=== PATIENT | female | born 1995 | race Caucasian/White ===

== ENCOUNTER 2018-08-09 22:00 | Inpatient (IN) ==
--- NOTE | 2018-08-09 22:08 | Emergency Department Note ---
Disposition General Adult HPI - General Chief complaint: ED General Medical Stated complaint: "Tachycardia, fever" sent from Time Seen by Provider: 08/09/18 22:07 Source: patient Nursing Notes Reviewed: Yes Vital Signs Reviewed: Yes - History of Present Illness Pain Scale: 5 - Related Data Allergies Allergy/AdvReac Type Severity Reaction Status Date / Time Sulfa (Sulfonamide Allergy Rash Verified 10/24/15 20:41 Antibiotics) Past Medical History - Past Medical History Medical history: Reports: no medical history Psychiatric history: Reports: no psych history MANAGER PLAY history: Reports: no MANAGER PLAY history - Social History Smoking Status: 2nd Hand Smoke Exposure Smokeless Tobacco Status: No Alcohol use: Reports: none Drug use: Reports: none Physical Exam - General General appearance: alert Course Vital Signs Temperature 99.0 F 08/09/18 22:02 Pulse Rate 124 08/09/18 22:02 Respiratory Rate 20 08/09/18 22:02 Blood Pressure 100/62 08/09/18 22:02 O2 Sat by Pulse Oximetry 100 08/09/18 22:02 Temperature 99.0 F 08/09/18 22:02 Pulse Rate 124 08/09/18 22:02 Respiratory Rate 20 08/09/18 22:02 Blood Pressure 100/62 08/09/18 22:02 O2 Sat by Pulse Oximetry 100 08/09/18 22:02 Oxygen Delivery Oxygen Delivery Room Air
[2018-08-09] MEDS ORDERED: 0.9 % Sodium Chloride 1,000 ML IVC ONE ×2 (22:36→23:58)
--- NOTE | 2018-08-09 23:08 | Emergency Department Note ---
Disposition Clinical Impression: Xavier Peterson virus infection, Mononucleosis, Urinary tract infection, Petechiae , Transaminitis, Acute kidney injury, Leukocytosis Disposition: Admitted As Inpatient Referrals: Donnell Ocampo MD [Primary Care Provider] - Forms: ED Satisfaction Letter, Work/School Release Fever HPI - General Chief Complaint: ED General Medical Stated Complaint: "Tachycardia, fever" sent from Time Seen by Provider: 08/09/18 22:07 Source: patient - History of Present Illness HPI Narrative: The 23 years old female is here for chest pain, fever, rashes, sore throat for last 1 day. She has had flue shot on last Sunday. She went to urgent care for those problem today and took Xray chest and referred to ED to evaluate for tachycardia and fever. She stated that she has fever about 104F , erythematous maculo-papular rashes most prominently in both lower limbs. She has had pain in throat and feels discomfort during swallowing. She has minimal swelling in both lower limbs and admits mild chest discomfort in chest basically during deep inspiration. She admits some nausea but no vomiting. Pt Subjective Complaint: fever, malaise Onset (ago): day(s) Associated symptoms: Reports: chills, myalgias, headache, nasal congestion, sore throat, nausea, rash. Denies: rigors, stiff neck, dyspnea, abdominal pain , vomiting, altered mental status, night sweats Improves with: nothing Worsens with: nothing - Related Data Allergies Allergy/AdvReac Type Severity Reaction Status Date / Time Sulfa (Sulfonamide Allergy Rash Verified 10/24/15 20:41 Antibiotics) All systems ED: reviewed and negative except as stated. Review of Systems: As Per HPI Constitutional: Reports: as per HPI, fever, chills, weakness ENT ED: Reports: throat pain. Denies: ear pain Cardiovascular: Reports: chest pain. Denies: palpitations, dyspnea on exertion , edema, syncope, paroxysmal nocturnal dyspnea Respiratory: Reports: cough. Denies: dyspnea, wheezes, sputum production Gastrointestinal: Reports: abdominal pain, nausea. Denies: vomiting, diarrhea, constipation, hematemesis Genitourinary: Denies: urgency, dysuria, frequency Musculoskeletal: Reports: as per HPI. Denies: back pain, neck pain Neurological: Denies: headache, weakness, numbness Psychiatric: Denies: anxiety, depression Endocrine: Reports: fatigue. 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 - Social History Smoking Status: 2nd Hand Smoke Exposure Alcohol use: Reports: none Drug use: Reports: none Physical Exam - General Limitations: no limitations General appearance: alert, in no apparent distress - Head Head exam: atraumatic, normocephalic - Eye Eye exam: Present: normal appearance, PERRL, EOMI - ENT ENT exam: mucous membranes moist, other (Congested posterior pharyngeal wall and fauces , but no tonsillar enlargement) - Neck Neck exam: Present: normal inspection, full ROM, other ( anterior , Supraclavicular, scalaneus and posoterior cervical LN palpable, but not significantly enlarged ( less than 1 cm)) - Chest Chest inspection: Present: normal inspection, symmetric chest wall rise - Respiratory Respiratory exam: Present: normal lung sounds bilaterally. Absent: respiratory distress, wheezes, accessory muscle use - Cardiovascular Cardiovascular exam: Present: regular rate, normal rhythm, tachycardia, normal heart sounds, +S1, +S2. Absent: bradycardia - Abdominal Exam Abdominal exam: Present: soft, Non-Tender, normal bowel sounds. Absent: distention, guarding - Extremities Exam Extremities exam: Present: tenderness, pedal edema, other (Mild non pitting edema both leg, non itchy Maculopapular rashes both legs below knee). Absent: joint swelling, calf tenderness - Expanded Lower Extremity Exam Neurovascular/Tendon exam: Present: normal capillary refill - Back Exam Back exam: Present: normal inspection. Absent: CVA tenderness (R), CVA tenderness (L), muscle spasm - Neurological Exam Neurological exam: Present: alert, oriented X3, reflexes normal - Psychiatric Psychiatric exam: Present: normal affect - Skin Skin exam: Present: warm, intact Course Course Narrative: The patient has fever, chest pain , rash x 1 day . She had gotten flu shot on last sunday . Xray chest done in Urgent care : normal. We planned to work up with CBC, Rapid test for streptococcus,Monospot for IM, CMP,urinalysis We planned to admit her urine is positive for UTI, acute renal impairment, elevated liver enzyme . Vital Signs Temperature 99.0 F 08/09/18 22:02 Pulse Rate 124 08/09/18 22:02 Respiratory Rate 20 08/09/18 22:02 Blood Pressure 100/62 08/09/18 22:02 O2 Sat by Pulse Oximetry 100 08/09/18 22:02 Temperature 99.0 F 08/09/18 22:02 Pulse Rate 124 08/09/18 22:02 Respiratory Rate 20 08/09/18 22:02 Blood Pressure 100/62 08/09/18 22:02 O2 Sat by Pulse Oximetry 100 08/09/18 22:02 Oxygen Delivery Oxygen Delivery Room Air Fever - Lab Data Result diagrams: 08/09/18 22:58 08/09/18 22:58 Lab Results 08/09/18 08/09/18 08/09/18 Range/Units 22:58 22:58 22:58 WBC 17.4 H (4.3-11.1) K/mcL RBC 4.44 (3.82-4.97) M/mcL Hgb 13.2 (11.5-15.4) g/dL Hct 38.7 (35.3-44.9) % MCV 87.2 (83.0-100.0) fL MCH 29.7 (28.0-33.3) pg MCHC 34.1 (31.6-35.5) g/dL RDW 12.4 (11.5-14.5) % Plt Count 199 (140-400) K/mcL MPV 9.6 (9.4-12.4) fL Immature Gran % 3.0 (0-4) % Seg Neutrophils % 90.8 % Lymphocytes % 1.7 % Monocytes % 1.8 % Eosinophils % 2.5 % Basophils % 0.2 % Neutrophils # 15.8 H (1.6-8.9) K/mcL Lymphocytes # 0.3 L (0.6-4.6) K/mcL Monocytes # 0.3 (0.0-1.3) K/mcL Eosinophils # 0.4 (0.0-0.6) K/mcL Basophils # 0.0 (0.0-0.2) K/mcL Reactive Lymphocytes Present A (Not Present) Toxic Granulation Present A (Not Present) Platelet Estimate Normal (Normal) PT 17.8 H (9.4-12.1) Seconds INR 1.6 APTT 34.2 (26.0-36.0) Seconds Sodium 136 (136-145) mEq/L Potassium 3.4 L (3.5-5.1) mEq/L Chloride 102 (98-107) mEq/L Carbon Dioxide 25 (23-29) mEq/L BUN 33 H (6-20) mg/dL Creatinine 1.68 H (0.60-1.20) mg/dL Est GFR ( Amer) 47 L (> 60) Est GFR (Non-Af Amer) 38 L (> 60) BUN/Creatinine Ratio 20 (6-26) Glucose 124 H (70-105) mg/dL Calculated Osmolality 291 (280-300) Calcium 8.6 (8.6-10.3) mg/dL Total Bilirubin 3.2 H (0.3-1.0) mg/dL Direct Bilirubin 2.3 H (0.0-0.2) mg/dL Indirect Bilirubin 0.9 (0.0-1.2) mg/dL AST 85 H (13-39) Units/L ALT 146 H (7-52) Units/L Alkaline Phosphatase 81 (34-104) Units/L Serum Total Protein 6.1 L (6.4-8.9) g/dL Albumin 3.7 (3.5-5.7) g/dL Globulin 2.4 (2.4-3.5) g/dL Albumin/Globulin Ratio 1.5 (1.1-2.2) Serum , Qual (Negative) Ur Specimen Adequacy Urine Color (Yellow) Urine Clarity (Clear) Urine pH (5.0-8.0) pH Units Ur Specific [place] (1.010-1.025) Urine Protein (Neg-Trace) mg/dL Urine Glucose (UA) (Normal) mg/dL Urine Ketones (Negative) mg/dL Urine Blood (Negative) Urine Nitrite (Negative) Urine Bilirubin (Negative) Urine Urobilinogen (Normal) mg/dL Ur Leukocyte Esterase (Negative) Urine Microscopic RBC (0-3) per hpf Urine Microscopic WBC (0-3) per hpf Ur Squamous Epith Cells (None-Few) per lpf Urine Bacteria (None-Few) per hpf Hyaline Casts Urine Yeast Ur Culture Indicated? (NO) Infectious [place] Assay (Negative) 08/09/18 08/09/18 08/09/18 Range/Units 22:58 22:58 23:03 WBC (4.3-11.1) K/mcL RBC (3.82-4.97) M/mcL Hgb (11.5-15.4) g/dL Hct (35.3-44.9) % MCV (83.0-100.0) fL MCH (28.0-33.3) pg MCHC (31.6-35.5) g/dL RDW (11.5-14.5) % Plt Count (140-400) K/mcL MPV (9.4-12.4) fL Immature Gran % (0-4) % Seg Neutrophils % % Lymphocytes % % Monocytes % % Eosinophils % % Basophils % % Neutrophils # (1.6-8.9) K/mcL Lymphocytes # (0.6-4.6) K/mcL Monocytes # (0.0-1.3) K/mcL Eosinophils # (0.0-0.6) K/mcL Basophils # (0.0-0.2) K/mcL Reactive Lymphocytes (Not Present) Toxic Granulation (Not Present) Platelet Estimate (Normal) PT (9.4-12.1) Seconds INR APTT (26.0-36.0) Seconds Sodium (136-145) mEq/L Potassium (3.5-5.1) mEq/L Chloride (98-107) mEq/L Carbon Dioxide (23-29) mEq/L BUN (6-20) mg/dL Creatinine (0.60-1.20) mg/dL Est GFR ( Amer) (> 60) Est GFR (Non-Af Amer) (> 60) BUN/Creatinine Ratio (6-26) Glucose (70-105) mg/dL Calculated Osmolality (280-300) Calcium (8.6-10.3) mg/dL Total Bilirubin (0.3-1.0) mg/dL Direct Bilirubin (0.0-0.2) mg/dL Indirect Bilirubin (0.0-1.2) mg/dL AST (13-39) Units/L ALT (7-52) Units/L Alkaline Phosphatase (34-104) Units/L Serum Total Protein (6.4-8.9) g/dL Albumin (3.5-5.7) g/dL Globulin (2.4-3.5) g/dL Albumin/Globulin Ratio (1.1-2.2) Serum , Qual Negative (Negative) Ur Specimen Adequacy See below A Urine Color [place] A (Yellow) Urine Clarity Turbid A (Clear) Urine pH 5.5 (5.0-8.0) pH Units Ur Specific [place] 1.029 H (1.010-1.025) Urine Protein 30 H (Neg-Trace) mg/dL Urine Glucose (UA) Normal (Normal) mg/dL Urine Ketones Trace H (Negative) mg/dL Urine Blood Large H (Negative) Urine Nitrite Positive A (Negative) Urine Bilirubin Moderate H (Negative) Urine Urobilinogen 2.0 H (Normal) mg/dL Ur Leukocyte Esterase Large H (Negative) Urine Microscopic RBC 5-15 H (0-3) per hpf Urine Microscopic WBC TNTC H (0-3) per hpf Ur Squamous Epith Cells Moderate H (None-Few) per lpf Urine Bacteria Many H (None-Few) per hpf Hyaline Casts Test Not Performed Urine Yeast Test Not Performed Ur Culture Indicated? YES A (NO) Infectious [place] Assay Positive A (Negative)
[2018-08-09 23:16] LABS: Bilirubin,Urine Moderate (Negative); Blood,Urine Large (Negative); Clarity,Urine Turbid (Clear); Color,Urine Orange (Yellow); Glucose,Urine (UA) Normal (Normal); Ketones,Urine Trace mg/dL (Negative); Leukocyte Esterase,Urine Large (Negative); Nitrite,Urine Positive (Negative); PH,Urine 5.5 pH Units (5.0-8.0); Protein,Urine 30 mg/dL (Neg-Trace); Specific Gravity,Urine 1.029 (1.010-1.025)
[2018-08-09 23:22] LABS: WBC,Urine TNTC per hpf (0-3)
[2018-08-09] MEDS ORDERED: cefTRIAXone 1,000 MG in Water for inj. (sterile) 20 ML 10 ML IVP ONE (23:23)
[2018-08-09 23:24] LABS: Basophils % 0.2 %; Eosinophils # 0.4 K/mcL (0.0-0.6); Eosinophils % 2.5 %; Hematocrit 38.7 % (35.3-44.9); Hemoglobin 13.2 g/dL (11.5-15.4); Lymphocytes # 0.3 K/mcL (0.6-4.6); Lymphocytes % 1.7 %; Mean Corpuscular HGB Conc 34.1 g/dL (31.6-35.5); Mean Corpuscular Hemoglobin 29.7 pg (28.0-33.3); Mean Corpuscular Volume 87.2 fL (83.0-100.0); Mean Platelet Volume 9.6 fL (9.4-12.4); Monocytes # 0.3 K/mcL (0.0-1.3); Monocytes % 1.8 %; Neutrophils # 15.8 K/mcL (1.6-8.9); Platelet Count 199 K/mcL (140-400); Red Blood Count 4.44 M/mcL (3.82-4.97); Red Cell Distribution Width 12.4 % (11.5-14.5); Segmented Neutrophils % 90.8 %
[2018-08-09 23:28] LABS: Squamous Epithelial Cell,Urine Moderate per lpf (None-Few)
[2018-08-09 23:29] LABS: Bacteria,Urine Many per hpf (None-Few)
[2018-08-09 23:30] LABS: INR 1.6; Prothrombin Time 17.8 Seconds (9.4-12.1)
[2018-08-09 23:32] LABS: Activated Partial Thrombo Time 34.2 Seconds (26.0-36.0)
[2018-08-09 23:38] LABS: Platelet Estimate Normal (Normal); Reactive Lymphocytes Present (Not Present)
[2018-08-09 23:39] LABS: Toxic Granulation Present (Not Present)
[2018-08-09 23:48] LABS: Albumin 3.7 g/dL (3.5-5.7); Albumin/Globulin Ratio 1.5 (1.1-2.2); Bilirubin,Direct 2.3 mg/dL (0.0-0.2); Bilirubin,Indirect 0.9 mg/dL (0.0-1.2); Bilirubin,Total 3.2 mg/dL (0.3-1.0); Calcium 8.6 mg/dL (8.6-10.3); Globulin 2.4 g/dL (2.4-3.5); Potassium 3.4 mEq/L (3.5-5.1); Total Protein 6.1 g/dL (6.4-8.9)
[2018-08-10] MEDS ORDERED: 0.9 % Sodium Chloride 1,000 ML IVC ONE (00:08)
--- NOTE | 2018-08-10 00:17 | Emergency Department Note ---
Disposition Clinical Impression: Xavier Peterson virus infection, Mononucleosis, Urinary tract infection, Petechiae , Transaminitis, Acute kidney injury, Leukocytosis Disposition: Admitted As Inpatient Condition: Good Referrals: Donnell Ocampo MD [Primary Care Provider] - Forms: ED Satisfaction Letter, Work/School Release General Adult HPI - General Chief complaint: ED General Medical Stated complaint: "Tachycardia, fever" sent from [facility] Time Seen by Provider: 08/09/18 22:07 Source: patient Limitations: no limitations - History of Present Illness Pain Scale: 5 - Related Data Allergies Allergy/AdvReac Type Severity Reaction Status Date / Time Sulfa (Sulfonamide Allergy Rash Verified 10/24/15 20:41 Antibiotics) Constitutional: Reports: as per HPI, fever, chills, weakness ENT ED: Reports: throat pain. Denies: ear pain Cardiovascular: Reports: chest pain. Denies: palpitations, dyspnea on exertion , edema, syncope, paroxysmal nocturnal dyspnea Respiratory: Reports: cough. Denies: dyspnea, wheezes, sputum production Gastrointestinal: Reports: abdominal pain, nausea. Denies: vomiting, diarrhea, constipation, hematemesis Genitourinary: Denies: urgency, dysuria, frequency Musculoskeletal: Reports: as per HPI. Denies: back pain, neck pain Neurological: Denies: headache, weakness, numbness Psychiatric: Denies: anxiety, depression Endocrine: Reports: fatigue. 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 ARCHITECT history - Social History Smoking Status: 2nd Hand Smoke Exposure Smokeless Tobacco Status: No Alcohol use: Reports: none Drug use: Reports: none Physical Exam - General Limitations: no limitations General appearance: alert, in no apparent distress Course Vital Signs Temperature 99.0 F 08/09/18 22:02 Pulse Rate 124 08/09/18 22:02 Respiratory Rate 20 08/09/18 22:02 Blood Pressure 100/62 08/09/18 22:02 O2 Sat by Pulse Oximetry 100 08/09/18 22:02 Temperature 99.0 F 08/09/18 22:02 Pulse Rate 124 08/09/18 22:02 Respiratory Rate 20 08/09/18 22:02 Blood Pressure 100/62 08/09/18 22:02 O2 Sat by Pulse Oximetry 100 08/09/18 22:02 Oxygen Delivery Oxygen Delivery Room Air Medical Decision Making - MDM Narrative Medical decision making narrative: Patient has evidence of mononucleosis on her Monospot. However, she does have evidence of urinary tract infection as well. This could be also affecting her kidneys versus the mono infection. The lower extremity petechiae I feel could be secondary to the overall infection with mono. Her strep was negative. She had a chest x-ray done as an outpatient at urgent care that was negative. The family reported they did a flu swab that was also negative. At this time I feel the patient has transaminitis which could also be secondary to mono as well as the above findings but we need to be admitted for further observation and care as well as IV fluids and IV antibiotics for the urine infection. - Medical Records Medical records reviewed: Yes I reviewed the patient's medical records. - Lab Data Lab results reviewed: Yes I reviewed the patient's lab results. Result diagrams: 08/09/18 22:58 08/09/18 22:58 Lab Results 08/09/18 08/09/18 08/09/18 Range/Units 22:58 22:58 22:58 WBC 17.4 H (4.3-11.1) K/mcL RBC 4.44 (3.82-4.97) M/mcL Hgb 13.2 (11.5-15.4) g/dL Hct 38.7 (35.3-44.9) % MCV 87.2 (83.0-100.0) fL MCH 29.7 (28.0-33.3) pg MCHC 34.1 (31.6-35.5) g/dL RDW 12.4 (11.5-14.5) % Plt Count 199 (140-400) K/mcL MPV 9.6 (9.4-12.4) fL Immature Gran % 3.0 (0-4) % Seg Neutrophils % 90.8 % Lymphocytes % 1.7 % Monocytes % 1.8 % Eosinophils % 2.5 % Basophils % 0.2 % Neutrophils # 15.8 H (1.6-8.9) K/mcL Lymphocytes # 0.3 L (0.6-4.6) K/mcL Monocytes # 0.3 (0.0-1.3) K/mcL Eosinophils # 0.4 (0.0-0.6) K/mcL Basophils # 0.0 (0.0-0.2) K/mcL Reactive Lymphocytes Present A (Not Present) Toxic Granulation Present A (Not Present) Platelet Estimate Normal (Normal) PT 17.8 H (9.4-12.1) Seconds INR 1.6 APTT 34.2 (26.0-36.0) Seconds Sodium 136 (136-145) mEq/L Potassium 3.4 L (3.5-5.1) mEq/L Chloride 102 (98-107) mEq/L Carbon Dioxide 25 (23-29) mEq/L BUN 33 H (6-20) mg/dL Creatinine 1.68 H (0.60-1.20) mg/dL Est GFR ( Amer) 47 L (> 60) Est GFR (Non-Af Amer) 38 L (> 60) BUN/Creatinine Ratio 20 (6-26) Glucose 124 H (70-105) mg/dL Calculated Osmolality 291 (280-300) Calcium 8.6 (8.6-10.3) mg/dL Total Bilirubin 3.2 H (0.3-1.0) mg/dL Direct Bilirubin 2.3 H (0.0-0.2) mg/dL Indirect Bilirubin 0.9 (0.0-1.2) mg/dL AST 85 H (13-39) Units/L ALT 146 H (7-52) Units/L Alkaline Phosphatase 81 (34-104) Units/L Serum Total Protein 6.1 L (6.4-8.9) g/dL Albumin 3.7 (3.5-5.7) g/dL Globulin 2.4 (2.4-3.5) g/dL Albumin/Globulin Ratio 1.5 (1.1-2.2) Serum , Qual (Negative) Ur Specimen Adequacy Urine Color (Yellow) Urine Clarity (Clear) Urine pH (5.0-8.0) pH Units Ur Specific [place] (1.010-1.025) Urine Protein (Neg-Trace) mg/dL Urine Glucose (UA) (Normal) mg/dL Urine Ketones (Negative) mg/dL Urine Blood (Negative) Urine Nitrite (Negative) Urine Bilirubin (Negative) Urine Urobilinogen (Normal) mg/dL Ur Leukocyte Esterase (Negative) Urine Microscopic RBC (0-3) per hpf Urine Microscopic WBC (0-3) per hpf Ur Squamous Epith Cells (None-Few) per lpf Urine Bacteria (None-Few) per hpf Hyaline Casts Urine Yeast Ur Culture Indicated? (NO) Infectious [place] Assay (Negative) 08/09/18 08/09/18 08/09/18 Range/Units 22:58 22:58 23:03 WBC (4.3-11.1) K/mcL RBC (3.82-4.97) M/mcL Hgb (11.5-15.4) g/dL Hct (35.3-44.9) % MCV (83.0-100.0) fL MCH (28.0-33.3) pg MCHC (31.6-35.5) g/dL RDW (11.5-14.5) % Plt Count (140-400) K/mcL MPV (9.4-12.4) fL Immature Gran % (0-4) % Seg Neutrophils % % Lymphocytes % % Monocytes % % Eosinophils % % Basophils % % Neutrophils # (1.6-8.9) K/mcL Lymphocytes # (0.6-4.6) K/mcL Monocytes # (0.0-1.3) K/mcL Eosinophils # (0.0-0.6) K/mcL Basophils # (0.0-0.2) K/mcL Reactive Lymphocytes (Not Present) Toxic Granulation (Not Present) Platelet Estimate (Normal) PT (9.4-12.1) Seconds INR APTT (26.0-36.0) Seconds Sodium (136-145) mEq/L Potassium (3.5-5.1) mEq/L Chloride (98-107) mEq/L Carbon Dioxide (23-29) mEq/L BUN (6-20) mg/dL Creatinine (0.60-1.20) mg/dL Est GFR ( Amer) (> 60) Est GFR (Non-Af Amer) (> 60) BUN/Creatinine Ratio (6-26) Glucose (70-105) mg/dL Calculated Osmolality (280-300) Calcium (8.6-10.3) mg/dL Total Bilirubin (0.3-1.0) mg/dL Direct Bilirubin (0.0-0.2) mg/dL Indirect Bilirubin (0.0-1.2) mg/dL AST (13-39) Units/L ALT (7-52) Units/L Alkaline Phosphatase (34-104) Units/L Serum Total Protein (6.4-8.9) g/dL Albumin (3.5-5.7) g/dL Globulin (2.4-3.5) g/dL Albumin/Globulin Ratio (1.1-2.2) Serum , Qual Negative (Negative) Ur Specimen Adequacy See below A Urine Color [place] A (Yellow) Urine Clarity Turbid A (Clear) Urine pH 5.5 (5.0-8.0) pH Units Ur Specific [place] 1.029 H (1.010-1.025) Urine Protein 30 H (Neg-Trace) mg/dL Urine Glucose (UA) Normal (Normal) mg/dL Urine Ketones Trace H (Negative) mg/dL Urine Blood Large H (Negative) Urine Nitrite Positive A (Negative) Urine Bilirubin Moderate H (Negative) Urine Urobilinogen 2.0 H (Normal) mg/dL Ur Leukocyte Esterase Large H (Negative) Urine Microscopic RBC 5-15 H (0-3) per hpf Urine Microscopic WBC TNTC H (0-3) per hpf Ur Squamous Epith Cells Moderate H (None-Few) per lpf Urine Bacteria Many H (None-Few) per hpf Hyaline Casts Test Not Performed Urine Yeast Test Not Performed Ur Culture Indicated? YES A (NO) Infectious [place] Assay Positive A (Negative) - Radiology Data Radiology results reviewed: Yes I reviewed the patient's radiology results. Critical Care Time Critical Care Time: Yes Total Critical Care Time: 40 Attestation: Critical care time of 40 minutes spent in medical management of multisystem problems consistent with possible sepsis, UTI, mono, hepatitis
[2018-08-10] MEDS ORDERED: Naloxone 0.4 MG/ML INJ IVP PRN (00:51)
[2018-08-10] MEDS ORDERED: Acetaminophen 325 MG TABLET PO PRN (00:51)
[2018-08-10] MEDS ORDERED: Potassium Chloride Elixir 20 MEQ/15 ML UDC PO ONE (00:57)
--- NOTE | 2018-08-10 01:18 | Internal Med History&Physical ---
<Dino Stoddard - Last Filed: 08/10/18 01:16> Date of Encounter: 08/10/18 Time of Encounter: 01:47 Internal Medicine - H&P: HPI Chief complaint: Fever Admitted From: Emergency Dept Plans for Post Hospital Care: Home History of present illness: Ms. Rosado is a 23 year old female with no significant medical history who presents with 2 day history of fevers, chills, chest pain, sore throat. She states that her symptoms began yesterday with chest pain center chest with associated fevers and chills as well as a sore throat. She reports feeling fatigued. She denies any shortness of breath or cough. She states she has never had anything like this before. She reports she has not been eating and drinking much due to her sore throat and bad taste in her mouth. 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 She denies being sexually active. Past Med Surg Social Fam HX - Past Medical History Medical history: no medical history Psychiatric history: no psych history - Past Surgical History Surgical History: no surgical history - Social History Smoking Status: 2nd Hand Smoke Exposure Smokeless Tobacco Status: No Alcohol use: none Drug use: none Additional social history: Patient reports that she is not sexually active. - Additional Family History Additional family history: Patient denies any significant family history. Internal Medicine - H&P: Meds 3 Allergy/AdvReac Type Severity Reaction Status Date / Time Sulfa (Sulfonamide Allergy Rash Verified 10/24/15 20:41 Antibiotics) All Systems PM: A 10-system review of systems was performed and is negative for pertinent findings except as documented above in the HPI. - Constitutional Constitutional: chills, fatigue, fever(s) - EENT Eyes: no blurry vision, no change in vision Nose, mouth and throat: dry mouth, odynophagia, sore throat, no sinus pain, no sinus pressure, no throat swelling - Cardiovascular Cardiovascular ROS IM: chest pain, edema, palpitations, no dyspnea, no syncope - Respiratory Respiratory: no cough, no dyspnea, no chest congestion, no excessive phlegm production, no change in phlegm color - Gastrointestinal Gastrointestinal: loose stools (1 episode), nausea, no abdominal pain, no diarrhea, no vomiting - Genitourinary Genitourinary: no dysuria, no urinary frequency, no urinary hesitancy, no urinary incontinence, no urinary urgency - Musculoskeletal Musculoskeletal ROS IM: muscle cramps, no arthralgias, no joint swelling, no myalgias, no numbness, no tingling - Integumentary Integumentary IM: new lesions, rash, no non-healing lesions, no skin ulcer, no unusual bruising, no jaundice - Neurological Neurological ROS: no confusion, no disequilibrium, no dizziness, no frequent falls, no numbness, no tingling - Psychiatric Psychiatric: no anxiety, no depression - Endocrine Endocrine IM: fatigue, no polydipsia, no polyuria - Hematologic/Lymphatic Hematologic/Lymphatic: lymphadenopathy, no easy bleeding, no easy bruising - Allergic/Immunologic Allergic/Immunologic: no tongue swelling, no throat swelling - Constitutional Vitals: Temp Pulse Resp BP Pulse Ox 99.0 F 124 20 100/62 100 08/09/18 22:02 08/09/18 22:02 08/09/18 22:02 08/09/18 22:02 08/09/18 22:02 General appearance: Present: A&O X 3, pleasant, no acute distress, answers questions appropriately Exam: . - Head Head exam: Present: atraumatic, normal inspection, normocephalic - Eye Eye exam: Present: EOMI, PERRL, sclera anicteric - ENT ENT exam: Present: mucous membranes dry Additional comments: Mild tonsillar erythema - Neck Neck exam general surgery: Present: lymphadenopathy (Anterior cervical, bilaterally), supple. Absent: tenderness, nuchal rigidity - Respiratory Respiratory exam: Present: CTAB. Absent: rales, rhonchi, wheezes - Cardiovascular Cardiovascular exam: Present: +S1, +S2, tachycardia. Absent: gallop, irregular rhythm, rubs, systolic murmur - GI/Abdominal GI/Abdominal exam: Present: normal bowel sounds, soft, no peritoneal signs. Absent: distended, hepatomegaly, splenomegaly, tenderness - Extremities Exam Extremities exam: Present: pedal edema (Trace, nonpitting), warm, radial pulses palpable and symmetrical (Pedal pulses palpable and symmetrical). Absent: calf tenderness, cyanotic, tenderness - Neurological Exam Neurological exam: Present: alert, CN II-XII intact, oriented X3, no focal deficits, strengths equal and symetr throughout - Skin Skin exam: Present: dry, intact, petechiae (Lower extremities bilaterally), rash (Diffuse, mildly erythematous maculopapular rash extremity), warm Internal Med - H&P Results - Labs CBC & Chem 7: 08/09/18 22:58 08/09/18 22:58 Labs: Short CBC 08/09/18 Range/Units 22:58 WBC 17.4 H (4.3-11.1) K/mcL Hgb 13.2 (11.5-15.4) g/dL Hct 38.7 (35.3-44.9) % Plt Count 199 (140-400) K/mcL Neutrophils # 15.8 H (1.6-8.9) K/mcL BMP 08/09/18 22:58 Sodium 136 Potassium 3.4 L Chloride 102 Carbon Dioxide 25 BUN 33 H Creatinine 1.68 H Glucose 124 H Calcium 8.6 Liver Function 08/09/18 Range/Units 22:58 Total Bilirubin 3.2 H (0.3-1.0) mg/dL Direct Bilirubin 2.3 H (0.0-0.2) mg/dL AST 85 H (13-39) Units/L ALT 146 H (7-52) Units/L Alkaline Phosphatase 81 (34-104) Units/L Albumin 3.7 (3.5-5.7) g/dL Urine 08/09/18 Range/Units 23:03 Urine Color [place] A (Yellow) Urine Clarity Turbid A (Clear) Urine pH 5.5 (5.0-8.0) pH Units Ur Specific [place] 1.029 H (1.010-1.025) Urine Protein 30 H (Neg-Trace) mg/dL Urine Glucose (UA) Normal (Normal) mg/dL - Assessment and plan (1) Infectious mononucleosis Current Visit: Yes Status: Acute Assessment and plan: Patient presents with fever, sore throat, anterior cervical chain lymphadenopathy. [place] test was positive. Patient admits to poor by mouth intake. Transaminitis and rash, likely due to infectious mononucleosis. Symptomatic treatment with Tylenol for pain/fever, Benadryl for itching Qualifiers: Infectious mononucleosis etiology: gammaherpesvirus (incl. EBV) Infectious mononucleosis complication: without complication Qualified Code(s): B27.00 - Gammaherpesviral mononucleosis without complication (2) Acute kidney injury Current Visit: Yes Status: Acute Assessment and plan: Likely secondary to dehydration and poor by mouth intake in the setting of infectious mononucleosis. Hemodynamically stable. We will fluid hydrate and recheck in the morning. If persistent then consider further workup (3) Transaminitis Current Visit: Yes Status: Acute Assessment and plan: Likely secondary to infectious mononucleosis as above. Likely self-limiting. Hepatitis panel ordered by the ER is pending. (4) Asymptomatic bacteriuria Current Visit: Yes Status: Acute Assessment and plan: Patient has positive nitrates a month leukocyte esterase in the urine however after discussion with the patient's she denies any dysuria, urinary hesitancy, feeling of incomplete emptying, urinary frequency. She does state that she has feelings of urinary urgency but has had these for years and no new symptoms patient received a dose of Rocephin in the emergency department, we will not continue as the patient does not clinically have urinary tract. If patient develops symptoms consider treatment. (5) DVT prophylaxis Current Visit: Yes Status: Acute Assessment and plan: She moved for observation is ambulatory no indication for chemical DVT prophylaxis. Order placed to ambulate patient 3 times a day - Time Spent With Patient Total time spent is greater than 50% in coordination of care (as documented) at patient's floor/unit and/or counseling patient: <Kj Rodriguez - Last Filed: 08/10/18 07:15> Date of Encounter: 08/10/18 Internal Medicine - H&P: HPI History of present illness: Ms. Rosado is a 23 year old female Past Med Surg Social Fam HX - Family History Mother Age: 37 Hx Family Cardiac Disorders: Yes (SVT) Hx Family Respiratory Disorders: Yes (Asthma) Father Age: 52 Hx Family Cardiac Disorders: Yes (Heart disease, high BP) All Systems PM: A 10-system review of systems was performed and is negative for pertinent findings except as documented above in the HPI. - Constitutional Vitals: Temp Pulse Resp BP Pulse Ox 98.6 F 116 15 102/59 100 08/10/18 02:08 08/10/18 02:08 08/10/18 02:08 08/10/18 02:08 08/10/18 02:08 Internal Med - H&P Results - Labs CBC & Chem 7: 08/10/18 05:53 08/10/18 05:53 Labs: Short CBC 08/10/18 Range/Units 05:53 WBC 11.5 H (4.3-11.1) K/mcL Hgb 12.0 (11.5-15.4) g/dL Hct 35.5 (35.3-44.9) % Plt Count 171 (140-400) K/mcL BMP 08/10/18 05:53 Sodium 138 Potassium 3.9 Chloride 113 H Carbon Dioxide 20 L BUN 23 H Creatinine 1.12 Glucose 102 Calcium 7.7 L Liver Function 08/10/18 Range/Units 05:53 Total Bilirubin 2.1 H (0.3-1.0) mg/dL AST 50 H (13-39) Units/L ALT 96 H (7-52) Units/L Alkaline Phosphatase 66 (34-104) Units/L Albumin 2.8 L (3.5-5.7) g/dL - Assessment and plan (1) Transaminitis Current Visit: Yes Status: Acute (2) Acute kidney injury Current Visit: Yes Status: Acute (3) Infectious mononucleosis Current Visit: Yes Status: Acute Qualifiers: Infectious mononucleosis etiology: gammaherpesvirus (incl. EBV) Infectious mononucleosis complication: without complication Qualified Code(s): B27.00 - Gammaherpesviral mononucleosis without complication (4) Asymptomatic bacteriuria Current Visit: Yes Status: Acute (5) DVT prophylaxis Current Visit: Yes Status: Acute - Time Spent With Patient Total time spent is greater than 50% in coordination of care (as documented) at patient's floor/unit and/or counseling patient: - Attending Attestation Patient seen and examined. Chart reviewed. Case discussed with resident. Agree with assessment and plan. We will admit patient for fluid resuscitation in the setting of acute infectious mononucleosis.
[2018-08-10 01:26] LABS: Hepatitis B Surface Antigen Nonreactive (Nonreactive)
[2018-08-10] MEDS: Ringers Solution, Lactated 1,000 ML IVC SCH ×2 (03:24→11:08)
[2018-08-10 06:50] LABS: Hematocrit 35.5 % (35.3-44.9); Mean Corpuscular HGB Conc 33.8 g/dL (31.6-35.5); Mean Corpuscular Hemoglobin 29.6 pg (28.0-33.3); Mean Corpuscular Volume 87.7 fL (83.0-100.0); Platelet Count 171 K/mcL (140-400); Red Blood Count 4.05 M/mcL (3.82-4.97); Red Cell Distribution Width 12.6 % (11.5-14.5)
[2018-08-10 07:07] LABS: Alanine Aminotransferase 96 Units/L (7-52); Albumin 2.8 g/dL (3.5-5.7); Albumin/Globulin Ratio 1.6 (1.1-2.2); Alkaline Phosphatase 66 Units/L (34-104); Aspartate Amino Transferase 50 Units/L (13-39); BUN/Creatinine Ratio 21 (6-26); Bilirubin,Total 2.1 mg/dL (0.3-1.0); Blood Urea Nitrogen 23 mg/dL (6-20); Calcium 7.7 mg/dL (8.6-10.3); Carbon Dioxide 20 mEq/L (23-29); Chloride 113 mEq/L (98-107); Globulin 1.8 g/dL (2.4-3.5); Glucose 102 mg/dL (70-105); Magnesium 1.7 mg/dL (1.6-2.6); Osmolality,Calculated 290 (280-300); Potassium 3.9 mEq/L (3.5-5.1); Sodium 138 mEq/L (136-145); Total Protein 4.6 g/dL (6.4-8.9); eGFR For Non-African Americans > 60 (> 60)
[2018-08-10 07:25] LABS: Lymphocytes # 0.7 K/mcL (0.6-4.6); Neutrophils # 10.8 K/mcL (1.6-8.9)
[2018-08-10 07:26] LABS: Platelet Estimate Normal (Normal); Toxic Granulation Present (Not Present)
[2018-08-10] MEDS: cefTRIAXone 1,000 MG in Water for inj. (sterile) 20 ML 10 ML IVP SCH (09:42)
--- NOTE | 2018-08-10 14:24 | Internal Med Progress Note ---
<Jesu Ventura - Last Filed: 08/10/18 16:43> Hospitalist Progress Note - Encounter Date of Encounter: 08/10/18 - Exam Vitals: Temp Pulse Resp BP Pulse Ox 99.2 F 97 16 103/65 92 08/10/18 12:34 08/10/18 12:34 08/10/18 12:34 08/10/18 12:34 08/10/18 12:34 - Assessment and Plan (1) Transaminitis Current Visit: Yes Status: Acute (2) Acute kidney injury Current Visit: Yes Status: Acute (3) Infectious mononucleosis Current Visit: Yes Status: Acute (4) Asymptomatic bacteriuria Current Visit: Yes Status: Acute (5) DVT prophylaxis Current Visit: Yes Status: Acute - Time Spent with Patient Total time spent is greater than 50% in coordination of care (as documented) at patient's floor/unit and/or counseling patient: Internal Medicine: Result - Labs CBC & Chem 7: 08/10/18 05:53 08/10/18 05:53 Labs: Short CBC 08/10/18 Range/Units 05:53 WBC 11.5 H (4.3-11.1) K/mcL Hgb 12.0 (11.5-15.4) g/dL Hct 35.5 (35.3-44.9) % Plt Count 171 (140-400) K/mcL Neutrophils # 10.8 H (1.6-8.9) K/mcL BMP 08/10/18 05:53 Sodium 138 Potassium 3.9 Chloride 113 H Carbon Dioxide 20 L BUN 23 H Creatinine 1.12 Glucose 102 Calcium 7.7 L Liver Function 08/10/18 Range/Units 05:53 Total Bilirubin 2.1 H (0.3-1.0) mg/dL AST 50 H (13-39) Units/L ALT 96 H (7-52) Units/L Alkaline Phosphatase 66 (34-104) Units/L Albumin 2.8 L (3.5-5.7) g/dL - ABG Interpretation ABG results: PT/INR, D-dimer PT 17.8 Seconds (9.4-12.1) H 08/09/18 22:58 Consult Discharge Plan - Plan Referrals: Donnell Ocampo MD [Primary Care Provider] - - Attending Attestation I examined this patient and my medical decision-making was reviewed with the Resident Physician on 08/10/18. I agree with the documented findings, disposition and treatment plan as described except to the extent set forth below. Ms Rosado was admitted earlier this AM due to acute mono and tachycardia. She had BJ. She remains moderate to high risk at this time. Ms Rosado is feeling about the same. Denies urinary symptoms. No fever now. Swallowing OK Exam alert. Comfortable No lesions in mouth Heart tachy I/P 1. Tachycardia - sepsis 2. Acute mono 3. Possible UTI Agree with plan as above and in H&P <Violetta Prater - Last Filed: 08/10/18 18:30> Hospitalist Progress Note - Encounter Date of Encounter: 08/10/18 Time of Encounter: 10:05 - Subjective Interval History: Samira Rosado is a 23 year old female with no significant past medical history who presented on 08/09 to the ED with a 2 day history of fever, chills, chest pain, and sore throat. She admitted to decreased intake due to a bad taste in her mouth. She was found to have a positive mono spot test, BJ with Cr 1.68, transaminitis, and asymptomatic bacteriuria. She met SIRS criteria on presentation with a temperature of 99.0, HR 124, RR 20, WBC 17.4. She is feeling significantly better today after getting IVFs. She denies any SOB , dyspnea, chest pain, abdominal pain, nausea, vomiting, dysuria, hematuria, or polyuria. - Exam Vitals: Temp Pulse Resp BP Pulse Ox 99.2 F 97 16 103/65 92 08/10/18 12:34 08/10/18 12:34 08/10/18 12:34 08/10/18 12:34 08/10/18 12:34 Exam: General: Lying comfortably in bed, NAD HEENT: Normocephalic, atraumatic. Erythemetous oropharynx, without tonsilar exudate. Neck: Anterior cervial lymphadenopathy noted bilaterally Cardio: Tachycardic, regular rhythm, normal S1 and S2, no murmurs Resp: CTAB, no wheezing or crackles Abd: Soft, non-tender, no guarding or rebound tenderness Ext: trace non-pitting pedal edema Neuro: No focal deficits Psych: Answers questions appropriately - Assessment and Plan (1) Sepsis Current Visit: Yes Status: Acute Assessment and Plan: Likely secondary to UTI versus mononucleosis On presentation, patient had a temp of 99.0 HR 124 RR 20 WBC 17.4 Still meets criteria with temp 99.2 HR 116 RR 20 WBC 11.5 today UA - large blood, positive nitrite, large leuk estrace, WBC TNTC, mod squamous, many bacteria Urine culture pending (+) Monospot band neutrophils 14 Continue Ceftriaxone day 2 Continue IVFs (s/p 4L) Will continue to monitor (2) Infectious mononucleosis Current Visit: Yes Status: Acute Assessment and Plan: 2 day hx of fever, chills, CP, sore throat, decreased intake Momospot (+) WBC 17.4 --> 11.5 Bilateral anterior cervical lymphadenopathy present, transaminitis, diffuse rash Atypical presentation of [place] as patient denies myalgias and has improved significantly with IVFs and abx Possibly early presentation versus symptoms more sepsis related d/t UTI Continue IVFs Supportive care with tylenol PRN pain/fevers Benadryl for itching (3) Asymptomatic bacteriuria Current Visit: Yes Status: Acute Assessment and Plan: Patient denies dysuria, polyuria, nocturia, hematuria UA - large blood, positive nitrite, large leuk estrace, WBC TNTC, mod squamous, many bacteria Urine culture pending Continue Ceftriaxone day 2 (4) Acute kidney injury Current Visit: Yes Status: Acute Assessment and Plan: Likely secondary to dehydration and poor intake in the setting of [place] Cr 1.68 on presentation, 1.12 today continue IVFs will continue to monitor (5) Tachycardia Current Visit: No Status: Acute Assessment and Plan: Likely secondary to sepsis with UTI and [place] EKG from 2014 NSR HR 65 Patient has remained in 110s - 120s Continue abx Continue IVFs Will continue to monitor closely (6) Transaminitis Current Visit: Yes Status: Acute Assessment and Plan: Likely secondary to infectious mononucleosis as above Likely self-limiting Hep B negative Remaining Hepatitis panel pending. Will recheck on AM labs DVT Prophylaxis: No indication, patient is ambulatory Ambulate TID - Time Spent with Patient Total time spent is greater than 50% in coordination of care (as documented) at patient's floor/unit and/or counseling patient: Internal Medicine: Result - Labs CBC & Chem 7: 08/10/18 05:53 08/10/18 05:53 Labs: Short CBC 08/10/18 Range/Units 05:53 WBC 11.5 H (4.3-11.1) K/mcL Hgb 12.0 (11.5-15.4) g/dL Hct 35.5 (35.3-44.9) % Plt Count 171 (140-400) K/mcL Neutrophils # 10.8 H (1.6-8.9) K/mcL BMP 08/10/18 05:53 Sodium 138 Potassium 3.9 Chloride 113 H Carbon Dioxide 20 L BUN 23 H Creatinine 1.12 Glucose 102 Calcium 7.7 L Liver Function 08/10/18 Range/Units 05:53 Total Bilirubin 2.1 H (0.3-1.0) mg/dL AST 50 H (13-39) Units/L ALT 96 H (7-52) Units/L Alkaline Phosphatase 66 (34-104) Units/L Albumin 2.8 L (3.5-5.7) g/dL - ABG Interpretation ABG results: PT/INR, D-dimer PT 17.8 Seconds (9.4-12.1) H 08/09/18 22:58 <Jesu Ventura - Last Filed: 08/10/18 16:43> (3) Infectious mononucleosis Qualifiers: Infectious mononucleosis etiology: gammaherpesvirus (incl. EBV) Infectious mononucleosis complication: without complication Qualified Code(s): B27.00 - Gammaherpesviral mononucleosis without complication <Violetta Prater - Last Filed: 08/10/18 18:30> (2) Infectious mononucleosis Qualifiers: Infectious mononucleosis etiology: gammaherpesvirus (incl. EBV) Infectious mononucleosis complication: without complication Qualified Code(s): B27.00 - Gammaherpesviral mononucleosis without complication
[2018-08-11 01:39] LABS: Basophils % 0.2 %; Eosinophils # 0.6 K/mcL (0.0-0.6); Eosinophils % 9.3 %; Hematocrit 35.3 % (35.3-44.9); Hemoglobin 11.8 g/dL (11.5-15.4); Immature Granulocytes % 0.5 % (0-4); Lymphocytes # 0.9 K/mcL (0.6-4.6); Lymphocytes % 13.8 %; Mean Corpuscular HGB Conc 33.4 g/dL (31.6-35.5); Mean Corpuscular Hemoglobin 29.7 pg (28.0-33.3); Mean Corpuscular Volume 88.9 fL (83.0-100.0); Monocytes # 0.4 K/mcL (0.0-1.3); Monocytes % 6.5 %; Platelet Count 177 K/mcL (140-400); Red Blood Count 3.97 M/mcL (3.82-4.97); Red Cell Distribution Width 12.8 % (11.5-14.5); Segmented Neutrophils % 69.7 %
[2018-08-11 01:43] LABS: Neutrophils # 4.7 K/mcL (1.6-8.9)
[2018-08-11 01:59] LABS: Alanine Aminotransferase 89 Units/L (7-52); Albumin/Globulin Ratio 1.6 (1.1-2.2); Alkaline Phosphatase 111 Units/L (34-104); Aspartate Amino Transferase 44 Units/L (13-39); BUN/Creatinine Ratio 15 (6-26); Bilirubin,Total 1.8 mg/dL (0.3-1.0); Blood Urea Nitrogen 11 mg/dL (6-20); Calcium 8.5 mg/dL (8.6-10.3); Carbon Dioxide 23 mEq/L (23-29); Chloride 112 mEq/L (98-107); Globulin 1.9 g/dL (2.4-3.5); Glucose 112 mg/dL (70-105); Osmolality,Calculated 288 (280-300); Potassium 3.8 mEq/L (3.5-5.1); Sodium 139 mEq/L (136-145); Total Protein 4.9 g/dL (6.4-8.9); eGFR For Non-African Americans > 60 (> 60)
[2018-08-11 02:56] LABS: Platelet Estimate Normal (Normal); Reactive Lymphocytes Present (Not Present); Toxic Granulation Present (Not Present)
[2018-08-11] MEDS: cefTRIAXone 1,000 MG in Water for inj. (sterile) 20 ML 10 ML IVP SCH (09:23)
[2018-08-11] MEDS ORDERED: Ringers Solution, Lactated 1,000 ML IVC SCH (09:30)
[2018-08-11 12:43] VITALS: BP 137/76
--- NOTE | 2018-08-11 13:29 | Cardiology Consult Note ---
Date of Encounter: 08/11/18 Time of Encounter: 13:25 Assessment and Plan (1) Tachycardia Current Visit: No Status: Acute Tachycardia in the setting of acute illness/mononucleosis, decreased hydration, and decreased appetite. Suspect tachycardia represents a physiological response to her current issues. Will check TSH. Check echocardiogram. If no significant findings, then no further cardiac workup appears necessary at this time. Adequate hydration encouraged. The patient also encouraged to rest until her illness resolves. Please call with any questions or concerns. Discussion w patient/family: The assessment and plan as outlined above was discussed with the patient and/or family members who expressed understanding and agreement. All questions were answered. Thank you for involving us in the care of your patient. Please call with any questions. History of Present Illness Consult date: 08/11/18 Requesting physician: Jesu Ventura Consult reason: Tachycardia Chief complaint: Tachycardia History of present illness: Ms. Rosado is a 23 year old female who was admitted to the hospital with 2 days of fevers, chills, sore throat. Per reports, she admitted to decreased hydration and a poor appetite. Abnormal renal function upon admission, which has improved with supportive care. Mildly elevated LFTs, also improved. Patient did test positive for mononucleosis. Consultation requested regarding tachycardia. Patient reports her heart rate naturally once fast, often in the 90s. 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 She denies any issues with palpitations, lightheadedness, near-syncope, or syncope on a routine basis. She does drink caffeine on occasion, but usually no more than a cup of coffee in the morning. She rarely drinks [employer] energy drinks. Past Med Surg Social Fam HX - Past Medical History Medical history: no medical history Psychiatric history: no psych history - Past Surgical History Surgical History: no surgical history - Social History Smoking Status: 2nd Hand Smoke Exposure Smokeless Tobacco Status: No Alcohol use: none Drug use: none - Family History Mother Age: 37 Hx Family Cardiac Disorders: Yes (SVT) Hx Family Respiratory Disorders: Yes (Asthma) Father Age: 52 Hx Family Cardiac Disorders: Yes (Heart disease, high BP) Medications and Allergies 3 Allergy/AdvReac Type Severity Reaction Status Date / Time Sulfa (Sulfonamide Allergy Rash Verified 10/24/15 20:41 Antibiotics) All Systems Review: The remainder of the systems were reviewed and are negative - Constitutional Constitutional: fever(s), lethargy, malaise, weakness, other - Cardiovascular Cardiovascular: as per HPI Physical Examination Vital Signs, Last 4 Hours Temp Pulse Resp BP Pulse Ox 08/11/18 12:41 98.4 F 85 14 137/76 100 08/11/18 10:11 98 General: Conversant, No Apparent Distress, Other (Pleasant. Nonacute appearing. ) HEENT: Atraumatic, Normocephaly, Mucus Membranes Moist Neck: No JVD, Normal carotid pulses Cardiac: Reg Rate and Rhythm, Normal S1 and S2, No Murmur Lungs: Normal Breath Sounds, No Wheeze, Rales, Rhonchi Neuro: Alert and responsive, No focal deficits noted Abdomen: Soft, Non-Tender Skin: No rashes noted on visualized skin Musculoskeletal: No Chest Wall Tenderness Extremities: No Clubbing, No Cyanosis, No Edema Results 08/11/18 01:05 08/11/18 01:05 Lab Results 08/11/18 08/11/18 01:05 01:05 WBC 6.7 Hgb 11.8 Hct 35.3 Plt Count 177 Sodium 139 Potassium 3.8 Chloride 112 H Carbon Dioxide 23 BUN 11 Creatinine 0.74 Glucose 112 H Calcium 8.5 L Total Bilirubin 1.8 H AST 44 H ALT 89 H Alkaline Phosphatase 111 H - EKG Interpretation EKG results cardiology: personally reviewed Consult Discharge Plan - Plan Referrals: Donnell Ocampo MD [Primary Care Provider] -
--- NOTE | 2018-08-11 16:24 | Discharge Summary ---
<Violetta Prater Larry - Last Filed: 08/11/18 16:22> - NOTES TO OUTPATIENT PROVIDER Notes to Outpatient Provider: Tachycardia and transaminitis while hospitalized in the setting of Infectious Mononucleosis. Outpatient echo to be scheduled and recommend rechecking LFTs with PCP for follow up within 1 week. Orders not resulted at time of discharge: Pending orders 08/11/18 09:31 EV echocardiogram Routine Date of Encounter: 08/11/18 Time of Encounter: 04:17 - Discharge Diagnosis (1) Sepsis Priority: Primary Status: Resolved Qualifiers: Sepsis type: sepsis due to unspecified organism Qualified Code(s): A41.9 - Sepsis, unspecified organism (2) Infectious mononucleosis Priority: Primary Status: Acute Qualifiers: Infectious mononucleosis etiology: gammaherpesvirus (incl. EBV) Infectious mononucleosis complication: without complication Qualified Code(s): B27.00 - Gammaherpesviral mononucleosis without complication (3) Asymptomatic bacteriuria Priority: Primary Status: Resolved (4) Acute kidney injury Priority: Secondary Status: Resolved (5) Tachycardia Priority: Secondary Status: Acute (6) Transaminitis Priority: Secondary Status: Acute Hospital course: Samira Rosado is a 23 year old female with no significant past medical history who presented on 08/09 to the ED with a 2 day history of fever, chills, chest pain, and sore throat. She admitted to decreased intake due to a bad taste in her mouth. She was found to have a positive mono spot test, BJ with Cr 1.68, transaminitis, and asymptomatic bacteriuria. She met SIRS criteria on presentation with a temperature of 99.0, HR 124, RR 20, WBC 17.4 and transaminitis. She had a urinalysis with large blood, positive nitrite, large leuk estrace, WBC TNTC, mod squamous, many bacteria and was started on Ceftriaxone for suspected UTI. She received 3 days of ceftriaxone, which was discontinued when the urine culture came back negative. During her hospitalization, she received a total of 6L IVFs. She improved signficantly with IVFs, her BJ resolved and her LFTs showed significant improvement as well. She remained tachycardic during her stay and is being scheduled for an outpatient Echocardiogram and follow up with her PCP. Recommend follow up LFTs with PCP. She is being discharged in stable condition and was made aware that she may continue to have fevers, aches, and fatigue and to stay hydrated and use tylenol as needed for pain. Discharge discussed with: patient, family (Mother) - Time Spent with Patient Total time spent providing and/or coordinating discharge services: - Discharge Medications Allergies/Adverse Reactions: 3 Allergy/AdvReac Type Severity Reaction Status Date / Time Sulfa (Sulfonamide Allergy Rash Verified 10/24/15 20:41 Antibiotics) Date of admission: 08/10/18 17:52 Primary care physician: Donnell Ocampo Consults: 08/11/18 10:44 Consult to Cardiology [CONS] Routine Comment: Consulting Provider: [facility] [place] Reason for Consult: persistent tachycardia Call Completed: Yes - Constitutional Vitals: Temp Pulse Resp BP Pulse Ox 98.4 F 85 14 137/76 100 08/11/18 12:41 08/11/18 12:41 08/11/18 12:41 08/11/18 12:41 08/11/18 12:41 General appearance: Present: A&O X 3, pleasant, no acute distress, answers questions appropriately Exam: General: Lying comfortably in bed, NAD HEENT: Normocephalic, atraumatic. Erythemetous oropharynx, without tonsilar exudate. Neck: Anterior cervial lymphadenopathy noted bilaterally Cardio: Tachycardic, regular rhythm, normal S1 and S2, no murmurs Resp: CTAB, no wheezing or crackles Abd: Soft, non-tender, no guarding or rebound tenderness Ext: LE swelling improved Neuro: No focal deficits Psych: Answers questions appropriately - Patient Status Disposition: Home, Self-Care Condition: Good Functional capacity at discharge: independent ambulation Overall status at discharge: patient is progressing back to baseline - Ambulatory Orders Ambulatory Orders: EV echocardiogram Time Frame: 1 Week, Facility: [facility], Location: Cardiopulmonary Svc - Discharge Instructions Instructions: Mononucleosis (DC), Urinary Tract Infection in Women (DC) Follow Up With: Donnell Ocampo MD [Primary Care Provider] - Forms: Inpatient Work/School Release - Diet and Activity Activity: increase activity as tolerated Diet: regular diet <Jesu Ventura - Last Filed: 08/11/18 18:17> Orders not resulted at time of discharge: Pending orders 08/11/18 09:31 EV echocardiogram Routine Date of Encounter: 08/11/18 - Discharge Diagnosis (1) Transaminitis Status: Acute (2) Acute kidney injury Status: Resolved (3) Infectious mononucleosis Status: Acute Qualifiers: Infectious mononucleosis etiology: gammaherpesvirus (incl. EBV) Infectious mononucleosis complication: without complication Qualified Code(s): B27.00 - Gammaherpesviral mononucleosis without complication (4) Asymptomatic bacteriuria Priority: Secondary Status: Resolved (5) Tachycardia Status: Acute (6) Sepsis Priority: Secondary Status: Resolved Qualifiers: Sepsis type: sepsis due to unspecified organism Qualified Code(s): A41.9 - Sepsis, unspecified organism Hospital course: Ms. Rosado is a 23 year old female - Time Spent with Patient Total time spent providing and/or coordinating discharge services: Date of admission: 08/10/18 17:52 Primary care physician: Donnell Ocampo Consults: 08/11/18 10:44 Consult to Cardiology [CONS] Routine Comment: Consulting Provider: [facility] [place] Reason for Consult: persistent tachycardia Call Completed: Yes - Constitutional Vitals: Temp Pulse Resp BP Pulse Ox 98.4 F 85 14 137/76 100 08/11/18 12:41 08/11/18 12:41 08/11/18 12:41 08/11/18 12:41 08/11/18 12:41 - Attending Attestation I examined this patient and my medical decision-making was reviewed with the Resident Physician on 08/11/18. I agree with the documented findings, disposition and treatment plan as described except to the extent set forth below. Ms Rosado has been in observation for fever and tachycardia related to acute mononucleosis. She has received IV fluids. She was persistently tachycardic and was evaluated by cardiology. She will have echo as outpatient. At this she is feeling better. She is currently afebrile and ready for discharge home.
[2018-08-12 00:33] LABS: Hepatitis A Antibody IgM Nonreactive (Nonreactive); Hepatitis B Core IgM Nonreactive (Nonreactive); Hepatitis C Virus Antibody Nonreactive (Nonreactive)
--- NOTE | 2018-08-12 13:24 | Electrocardiograph Report ---
[address] [place], [place] [address] Test Date: 2018-08-09 Pat Name: Samira Rosado Department: [id number] Room: 3A46 Gender: F Business Segment Manager: : 1995 Requested By: Yomi Guajardo Order Number: [id number] Reading MD: Kaia Goodman Measurements Intervals [place] Rate: 115 P: 51 NM: 144 QRS: 77 QRSD: 82 T: 23 QT: 308 QTc: 426 Interpretive Statements Sinus tachycardia Electronically Signed On 08-12-2018 13:22:38 EDT by Kaia Goodman
== END 2018-08-11 18:01 | disposition home or self-care (01) | DRG 872 ==
LOC: EMEROOARM 22:00 → 3ANU 22:00 → SUATTDRO 08-10 01:15 → 3ANU 08-10 01:46
PROVIDERS: ADMIT Internal Medicine; ATTEND Internal Medicine